=== PATIENT | female | born 1960 | race Caucasian/White ===

== ENCOUNTER 2017-12-30 09:14 | Emergency (ER) | payer OTHER ==
[2017-12-30 09:36] VITALS: RESP 18
[2017-12-30] MEDS ORDERED: SODIUM CHLORIDE 0.9% 1,000 ML IV STA (09:58)
[2017-12-30] MEDS ORDERED: PANTOPRAZOLE 40 MG/10 ML VIAL IVP STA (09:58)
[2017-12-30] MEDS ORDERED: KETOROLAC 30 MG/ML 1 ML VIAL IVP STA (09:58)
[2017-12-30] MEDS ORDERED: ONDANSETRON 4 MG/2 ML VIAL IVP STA (09:58)
--- NOTE | 2017-12-30 10:01 | ED ---
Abdominal Pain HPI - General Chief Complaint: Abdominal Pain Stated Complaint: ABDOMINAL PAIN Time Seen by Provider: 12/30/17 09:41 Source: patient, RN notes reviewed, old records reviewed Mode of arrival: ambulatory Limitations: no limitations - History of Present Illness Initial Comments: around is a 57-year-old female presents emergency Department that she plans to weeks of epigastric abdominal pain. She reports that occasionally will radiate towards her back. She relates that she's noticed some increased belching. She states that over the past month she changed to acute or diarrhea. She has been eating more proteins and sats. She thinks that the abdominal pain is related to her change in diet. Patient reports that she has had some episodes of diarrhea. She denies any chest pain or shortness of breath. She is a smoker. She has had no previous upper GIs or colonoscopies. Denies any significant surgical history. Patient relates that she has been taking oqip-ntt-sbylued medications such as Zantac. She states is been continuing to persist despite taking Zantac. The pain also sometimes seems to be worse at night and and she can wake up due to the pain and take another Zantac. - Related Data Home Medications Medication Instructions Recorded Confirmed Naproxen Sodium [Aleve] 220 mg PO BID 12/30/17 12/30/17 Ranitidine HCl [Zantac] 75 mg PO BID 12/30/17 12/30/17 Previous Rx's Medication Instructions Recorded Ciprofloxacin HCl [Cipro] 500 mg PO Q12HR 3 Days tab 12/30/17 Omeprazole 40 mg PO DAILY #20 capsule. 12/30/17 Sucralfate [Carafate] 1 gm PO ACHS #30 tablet 12/30/17 Allergies Allergy/AdvReac Type Severity Reaction Status Date / Time Penicillins Allergy Swelling Verified 12/30/17 10:16 Review of Systems ROS Statement: Those systems with pertinent positive or pertinent negative responses have been documented in the HPI. ROS Other: All systems not noted in ROS Statement are negative. Past Medical History Additional Past Medical History / Comment(s): arthritis History of Any Multi-Drug Resistant Organisms: None Reported Past Surgical History: No Surgical Hx Reported Past Psychological History: No Psychological Hx Reported Smoking Status: Current every day smoker Past Alcohol Use History: None Reported Past Drug Use History: None Reported General Exam - General Exam Comments Initial Comments: This is a well appearing 57 year old female, no distress. Limitations: no limitations General appearance: alert, in no apparent distress Head exam: Present: atraumatic, normocephalic, normal inspection Eye exam: Present: normal appearance, PERRL, EOMI. Absent: scleral icterus, conjunctival injection, periorbital swelling ENT exam: Present: normal exam, mucous membranes moist Neck exam: Present: normal inspection. Absent: tenderness, meningismus, lymphadenopathy Respiratory exam: Present: normal lung sounds bilaterally. Absent: respiratory distress, wheezes, rales, rhonchi, stridor Cardiovascular Exam: Present: regular rate, normal rhythm, normal heart sounds. Absent: systolic murmur, diastolic murmur, rubs, gallop, clicks GI/Abdominal exam: Present: soft, normal bowel sounds. Absent: distended, tenderness, guarding, rebound, rigid Extremities exam: Present: normal inspection, full ROM, normal capillary refill. Absent: tenderness, pedal edema, joint swelling, calf tenderness Back exam: Present: normal inspection Neurological exam: Present: alert, oriented X3, CN II-XII intact Course Vital Signs 12/30/17 12/30/17 12/30/17 09:33 10:18 11:15 Temperature 97.0 F L 97 F L Pulse Rate 73 70 60 Respiratory 18 18 18 Rate Blood Pressure 182/99 171/85 156/70 O2 Sat by Pulse 96 97 99 Oximetry 12/30/17 12:32 Temperature Pulse Rate 67 Respiratory 18 Rate Blood Pressure 166/77 O2 Sat by Pulse 98 Oximetry Medical Decision Making - Medical Decision Making 57 year old female with belching and epigastric abdominal pain. She changed her diet to keto, and states that she has no vomiting or changes in bowel habits. She has been taking Zantac for her pain. Patient was given IV fluids and labs obtained. She feels better after toradol and protonix. Gallbladder US is negative, and labs are negative. UA does show signs of infection. Patient will be treated with Cipro. Patient will follow up with PCP. Discussed possibly treating for ulcer as well, with carafate and omeprazole. Return parameters discussed and advised follow up with GI and PCP. - Lab Data Result diagrams: 12/30/17 10:00 12/30/17 10:00 Lab Results 04/09/18 04/09/18 04/09/18 Range/Units 10:00 10:00 11:14 WBC 7.6 (3.8-10.6) k/uL RBC 4.97 (3.80-5.40) m/uL Hgb 15.5 (11.4-16.0) gm/dL Hct 46.0 (34.0-46.0) % MCV 92.6 (80.0-100.0) fL MCH 31.3 (25.0-35.0) pg MCHC 33.8 (31.0-37.0) g/dL RDW 12.7 (11.5-15.5) % Plt Count 210 (150-450) k/uL Neutrophils % 70 % Lymphocytes % 22 % Monocytes % 5 % Eosinophils % 2 % Basophils % 0 % Neutrophils # 5.3 (1.3-7.7) k/uL Lymphocytes # 1.7 (1.0-4.8) k/uL Monocytes # 0.4 (0-1.0) k/uL Eosinophils # 0.2 (0-0.7) k/uL Basophils # 0.0 (0-0.2) k/uL Sodium 143 (137-145) mmol/L Potassium 4.5 (3.5-5.1) mmol/L Chloride 106 (98-107) mmol/L Carbon Dioxide 24 (22-30) mmol/L Anion Gap 13 mmol/L BUN 22 H (7-17) mg/dL Creatinine 0.52 (0.52-1.04) mg/dL Est GFR (CKD-EPI)AfAm >90 (>60 ml/min/1.73 sqM) Est GFR (CKD-EPI)NonAf >90 (>60 ml/min/1.73 sqM) Glucose 88 (74-99) mg/dL Calcium 9.5 (8.4-10.2) mg/dL Total Bilirubin 0.7 (0.2-1.3) mg/dL AST 23 (14-36) U/L ALT 30 (9-52) U/L Alkaline Phosphatase 59 (38-126) U/L Total Protein 7.0 (6.3-8.2) g/dL Albumin 4.3 (3.5-5.0) g/dL Amylase 50 (30-110) U/L Lipase 80 (23-300) U/L Urine Color Yellow Urine Appearance Cloudy H (Clear) Urine pH 5.5 (5.0-8.0) Ur Specific [place] 1.017 (1.001-1.035) Urine Protein Negative (Negative) Urine Glucose (UA) Negative (Negative) Urine Ketones 1+ H (Negative) Urine Blood Trace H (Negative) Urine Nitrite Positive H (Negative) Urine Bilirubin Negative (Negative) Urine Urobilinogen <2.0 (<2.0) mg/dL Ur Leukocyte Esterase Negative (Negative) Urine RBC 18 H (0-5) /hpf Urine WBC 7 H (0-5) /hpf Ur Squamous Epith Cells 2 (0-4) /hpf Urine Bacteria Moderate H (None) /hpf Urine Mucus Rare H (None) /hpf - Radiology Data Radiology results: report reviewed No acute processes identified. The liver somewhat appears course an echo pattern which could be fatty infiltration or hepatocellular disease with liver function studies. The gallbladder wall was within normal limits. Disposition Clinical Impression: Gastritis, UTI (urinary tract infection) Disposition: HOME SELF-CARE Condition: Good Instructions: Diet for Stomach Ulcers and Gastritis (ED) Additional Instructions: Patient advised to take medications as prescribed. Follow-up with GI specialist and primary care provider. Return to emergency department if any alarming signs or symptoms occur. Prescriptions: Ciprofloxacin HCl [Cipro] 500 mg PO Q12HR 3 Days tab Omeprazole 40 mg PO DAILY #20 capsule. Sucralfate [Carafate] 1 gm PO ACHS #30 tablet Referrals: None,Stated [Primary Care Provider] - 1-2 days Radha Flood MD [STAFF PHYSICIAN] - 1-2 days Luma Mcmahan MD [STAFF PHYSICIAN] - 1-2 days Time of Disposition: 12:22
[2017-12-30 10:15] LABS: Basophils % (A) 0 %; Eosinophils # (A) 0.2 k/uL (0-0.7); Eosinophils % (A) 2 %; HGB 15.5 gm/dL (11.4-16.0); Lymphocytes # (A) 1.7 k/uL (1.0-4.8); Lymphocytes % (A) 22 %; MCH 31.3 pg (25.0-35.0); MCHC 33.8 g/dL (31.0-37.0); MCV 92.6 fL (80.0-100.0); Monocytes # (A) 0.4 k/uL (0-1.0); Monocytes % (A) 5 %; Neutrophils # (A) 5.3 k/uL (1.3-7.7); Neutrophils % (A) 70 %; Platelet Count 210 k/uL (150-450); RBC 4.97 m/uL (3.80-5.40); RDW 12.7 % (11.5-15.5); WBC 7.6 k/uL (3.8-10.6)
--- NOTE | 2017-12-30 10:16 | XR ---
EXAMINATION TYPE: XR KUB DATE OF EXAM: 12/30/2017 COMPARISON: NONE HISTORY: Pain TECHNIQUE: One view abdominal series FINDINGS: The osseous structures are intact. The bowel gas pattern is nonspecific. Lung bases are clear. Curv ature the spine with degenerative changes seen. Arthropathy of the hip joints. IMPRESSION: 1. Nonspecific abdomen.
[2017-12-30 10:20] VITALS: TEMP 97
[2017-12-30 10:22] LABS: ALT 30 U/L (9-52); AST 23 U/L (14-36); Albumin 4.3 g/dL (3.5-5.0); Alkaline Phosphatase 59 U/L (38-126); Amylase 50 U/L (30-110); Anion Gap 13 mmol/L; Blood Urea Nitrogen 22 mg/dL (7-17); Calcium 9.5 mg/dL (8.4-10.2); Carbon Dioxide 24 mmol/L (22-30); Chloride 106 mmol/L (98-107); Glucose 88 mg/dL (74-99); Lipase 80 U/L (23-300); Potassium 4.5 mmol/L (3.5-5.1); Sodium 143 mmol/L (137-145); Total Bilirubin 0.7 mg/dL (0.2-1.3)
--- NOTE | 2017-12-30 10:53 | US ---
EXAMINATION TYPE: US gallbladder DATE OF EXAM: 12/30/2017 COMPARISON: NONE CLINICAL HISTORY: Pain. Epigastric pain and nausea x 2 weeks, patient had cup of coffee 3 hours prior to exam EXAM MEASUREMENTS: Liver Length: 13.2 cm Gallbladder Wall: 0.2 cm CBD: 0.4 cm Right Kidney: 11.3 x 4.3 x 4.0 cm Pancreas: visualized portions wnl, mostly obscured by overlying midline bowel gas Liver: wnl Gallbladder: wnl Evidence for sonographic Reyes's sign: yes CBD: visualized portions wnl, limited by overlying bowel gas Right Kidney: visualized portions wnl, inferior pole limited by overlying bowel gas IMPRESSION: 1. No acute process identified. 2. Liver somewhat coarsened in echo pattern which can be seen with fatty infiltration or hepatocellul ar disease correlate with liver function studies.
[2017-12-30 11:46] LABS: Appearance,Urine Cloudy (Clear); Bacteria,Urine Moderate /hpf; Bilirubin,Urine Negative (Negative); Blood,Urine Trace (Negative); Color,Urine Yellow; Glucose,Urine (UA) Negative (Negative); Ketones,Urine 1+ (Negative); Leukocyte Esterase,Urine Negative (Negative); Mucus,Urine Rare /hpf; Nitrite,Urine Positive (Negative); PH, Urine 5.5 (5.0-8.0); Protein,Urine Negative (Negative); RBC,Urine 18 /hpf (0-5); Specific Gravity,Urine 1.017 (1.001-1.035); Squamous Epithelial Cell,Urine 2 /hpf (0-4); Urobilinogen,Urine <2.0 mg/dL (<2.0); WBC,Urine 7 /hpf (0-5)
[2017-12-30 12:33] VITALS: BP 166/77; PULSE 67
== END 2017-12-30 12:33 | disposition home or self-care (01) ==
LOC: EC 09:14
DX: K29.70 Gastritis, unspecified, without bleeding (principal); N39.0 Urinary tract infection, site not specified; M19.90 Unspecified osteoarthritis, unspecified site; F17.200 Nicotine dependence, unspecified, uncomplicated; Z79.1 Long term (current) use of non-steroidal anti-inflammatories (NSAID); Z79.899 Other long term (current) drug therapy; Z88.0 Allergy status to penicillin
CPT/HCPCS: 36415; 80053; 82150; 83690; 85025; 81001; 74018; 76705; 99285; 96374; 96375 ×2; 96361; J2405; J1885; C9113

== ENCOUNTER → 2020-04-07 | Outpatient (CLI) | payer BC ==
--- NOTE | 2020-04-07 18:26 | XR ---
EXAMINATION TYPE: XR knee 4V bilateral DATE OF EXAM: 04/07/2020 CLINICAL HISTORY: Bilateral knee pain. Chronic pain. TECHNIQUE: AP, lateral, and oblique nonweight-bearing views of the bilateral knees were obtained. AP and lateral weightbearing views of the bilateral knees were also obtained. COMPARISON: Left knee radiograph 05/26/2014. FINDINGS: There is no acute fracture/dislocation evident in the lateral knees. There is mild medial compartment joint space narrowing bilaterally. There is mild degenerative spurring of the medial comp artments and minimally of the patellofemoral compartments, right greater than left. Moderate joint ef fusions bilaterally. IMPRESSION: Bicompartmental degenerative changes of the bilateral knees with moderate bilateral join t effusions.
== END | disposition home or self-care (01) ==
LOC: RADXRMAIN 13:52
PROVIDERS: ATTEND Family Medicine
DX: M17.0 Bilateral primary osteoarthritis of knee (principal)

== ENCOUNTER 2021-11-24 10:48 | Day surgery (SDC) | payer BC ==
[2021-11-24] MEDS ORDERED: LACTATED RINGERS 1,000 ML IV SCH (10:59)
[2021-11-24 11:16] VITALS: RESP 16; TEMP 98.1
[2021-11-24] MEDS ORDERED: PROPOFOL 10 MG/ML 20 ML VIAL IV ONE (11:29)
--- NOTE | 2021-11-24 11:49 | P.PCN ---
Date of Procedure: 11/24/21 Procedure(s) Performed: BRIEF HISTORY: Patient is a 61-year-old pleasant female scheduled for an elective colonoscopy as a part of screening for colorectal neoplasia. PROCEDURE PERFORMED: Colonoscopy with snare polypectomy. PREOPERATIVE DIAGNOSIS: Screening for colon cancer. IV sedation per Anesthesia. PROCEDURE: After informed consent was obtained, the patient, was brought into the endoscopy unit. IV sedation was administered by Anesthesia under continuous monitoring. Digital rectal examination was normal. Initially the Olympus CF-160 flexible video colonoscope was then inserted in the rectum, gradually advanced into the cecum without any difficulty. Careful examination was performed as the scope was gradually being withdrawn. Ileocecal valve and the appendiceal orifice were visualized and appeared normal. Prep was fair. Mucosa of the cecum, ascending colon, transverse colon, descending colon, appeared normal. In the sigmoid colon there was a 3 mm, 5 mm and 7 mm sessile polyps removed by snare polypectomy. Rest of the sigmoid colon, and rectum appeared normal. Retroflexion was performed in the rectum and no lesions were seen. The patient tolerated the procedure well. IMPRESSION: 3 mm, 5 mm and 7 mm sessile polyps in the sigmoid colon status post polypectomy Severe colon appeared normal RECOMMENDATIONS: Findings of this examination were discussed with the patient as well as her family. She was advised to follow with the biopsy results. If the biopsies revealed adenoma she can have a repeat colonoscopy in 5 years .
[2021-11-24 12:23] VITALS: BP 144/96; PULSE 80
== END 2021-11-24 12:19 | disposition home or self-care (01) ==
LOC: ORWHC2ENDO 10:48
PROVIDERS: ATTEND Internal Medicine Gastroenterology
DX: Z12.11 Encounter for screening for malignant neoplasm of colon (principal)
CPT/HCPCS: 45385; 88305; J2704

== ENCOUNTER → 2024-07-17 | Outpatient (CLI) | payer OTHER ==
[2024-07-17 15:04] LABS: Basophils # (A) 0.06 X 10*3/uL (0.00-0.10); Basophils % (A) 0.4 %; Eosinophils # (A) 0.09 X 10*3/uL (0.04-0.35); Eosinophils % (A) 0.7 %; HGB 15.4 g/dL (12.0-15.0); Lymphocytes # (A) 2.88 X 10*3/uL (0.90-5.00); Lymphocytes % (A) 21.3 %; MCH 32.7 pg (27.0-32.0); MCHC 32.8 g/dL (32.0-37.0); MCV 99.8 FL (80.0-97.0); Mean Platelet Volume 11.6 FL (9.5-12.2); Monocytes # (A) 1.01 X 10*3/uL (0.20-1.00); Monocytes % (A) 7.5 %; NRBC Per 100 WBC 0 X 10*3/uL (0.00-0.01); Neutrophils # (A) 9.37 X 10*3/uL (1.80-7.70); Neutrophils % (A) 69.3 %; Platelet Count 198 X 10*3/uL (140-440); RBC 4.71 X 10*6/uL (4.10-5.20); RDW 13.1 % (11.5-14.5); WBC 13.52 X 10*3/uL (4.50-10.00)
[2024-07-17 20:26] LABS: EBV-EA (IgG) 0.2 AI; EBV-EBNA(IgG) >8.0; EBV-VCA (IgG) 2.8 AI; EBV-VCA (IgM) <0.2 AI
== END | disposition home or self-care (01) ==
LOC: LABWHC1 11:21
PROVIDERS: ATTEND Nurse Practitioner
DX: J02.9 Acute pharyngitis, unspecified (principal)
CPT/HCPCS: 36415; 85025; 86308; 86644; 86663; 86664; 86665